=== PATIENT | female | born 1985 | race Caucasian/White ===

== ENCOUNTER 2016-10-08 14:46 | Observation (INO) | payer OTHER ==
[~2016-10-08] VITALS: Ht 170.2 cm; Wt 90.7 kg
[2016-10-08] MEDS ORDERED: IV NORMAL SALINE 1000ML BAG 1,000 ML IV SCH (15:12)
[2016-10-08] MEDS ORDERED: ONDANSETRON PF 4 MG/2 ML VIAL. IV ONE (15:15)
[2016-10-08] MEDS ORDERED: MORPHINE SULFATE 2 MG/ML DISP.SYRIN. IV/SQ PRN (15:15)
--- NOTE | 2016-10-08 15:19 | PHYS DOC ---
Past Medical History Past Medical History: No Pertinent History Past Surgical History: No Surgical History Additional Information: 1 PPD Alcohol Use: None Drug Use: None Adult General Chief Complaint Chief Complaint: MULTIPLE COMPLAINTS HPI HPI Patient is a 31 year old female who presents with abdominal pain epigastric area that radiates from her left upper quadrant or right upper quadrant. She states started at 2:30 the morning. Been constant ever since it started. She is nauseated but has not vomited. She's had several loose stools. She denies any blood in her stools. She denies any recent travel and any past medical history. She is on prednisone for a rash on her neck that she started taking 2 days ago. She states her 2 other children are sick 1 him had nausea vomiting and the other one had some diarrhea Any abdominal pain. 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 Review of Systems Review of Systems Constitutional: Denies fever or chills [] Eyes: Denies change in visual acuity, redness, or eye pain [] HENT: Denies nasal congestion or sore throat [] Respiratory: Denies cough or shortness of breath [] Cardiovascular: No additional information not addressed in HPI [] GI: Positive for abdominal pain, nausea, nonbloody diarrhea. : Denies dysuria or hematuria [] Musculoskeletal: Denies back pain or joint pain [] Integument: Denies rash or skin lesions [] Neurologic: Denies headache, focal weakness or sensory changes [] Endocrine: Denies polyuria or polydipsia [] Current Medications Current Medications Current Medications Medications (Trade) Dose Ordered Sig/[facility] Start Time Stop Time Status Last Admin Dose Admin Iohexol (Omnipaque 240 Mg/ml) 30 ml 1X ONCE 10/08/16 15:30 10/08/16 15:31 DC Iohexol (Omnipaque 300 Mg/ml) 75 ml 1X ONCE 10/08/16 15:30 10/08/16 15:31 DC 10/08/16 16:43 75 ML Morphine Sulfate 2 mg PRN Q15MIN PRN 10/08/16 15:15 10/09/16 15:14 Ondansetron HCl (Zofran) 4 mg 1X ONCE 10/08/16 15:15 10/08/16 15:17 DC 10/08/16 15:34 4 MG Sodium Chloride 1,000 ml @ 1,000 mls/hr Q1H 10/08/16 15:12 10/08/16 16:11 DC 10/08/16 15:35 1,000 MLS/HR Allergies Allergies Allergies Coded Allergies Type Severity Reaction Last Updated Verified No Known Drug Allergies 10/08/16 No Physical Exam Physical Exam Constitutional: Well developed, well nourished, no acute distress, non-toxic appearance. [] HENT: Normocephalic, atraumatic, bilateral external ears normal, oropharynx moist, no oral exudates, nose normal. [] Eyes: PERRLA, EOMI, conjunctiva normal, no discharge. [] Neck: Normal range of motion, no tenderness, supple, no stridor. [] Cardiovascular:Heart rate regular rhythm, no murmur [] Lungs & Thorax: Bilateral breath sounds clear to auscultation [] Abdomen: Bowel sounds normal, soft, mild tender to palpation the left upper quadrant, no rebound or guarding, no masses, no pulsatile masses. [] Skin: Warm, dry, no erythema, no rash. [] Back: No tenderness, no CVA tenderness. [] Extremities: No tenderness, no cyanosis, no clubbing, ROM intact, no edema. [] Neurologic: Alert and oriented X 3, normal motor function, normal sensory function, no focal deficits noted. [] Psychologic: Affect normal, judgement normal, mood normal. [] Current Patient Data Vital Signs Vital Signs Date Time Temp Pulse Resp B/P (MAP) Pulse Ox O2 Delivery O2 Flow Rate FiO2 10/08/16 18:23 64 17 91/60 (70) 98 Room Air 10/08/16 14:59 97.6 97.6 Lab Values Laboratory Tests Test 10/08/16 14:13 10/08/16 15:29 10/08/16 16:00 POC Urine HCG, Qualitative Hcg negative (Negative) White Blood Count 15.3 x10^3/uL (4.0-11.0) H Red Blood Count 4.96 x10^6/uL (3.50-5.40) Hemoglobin 15.5 g/dL (12.0-15.5) Hematocrit 44.7 % (36.0-47.0) Mean Corpuscular Volume 90 fL (79-100) Mean Corpuscular Hemoglobin 31 pg (25-35) Mean Corpuscular Hemoglobin Concent 35 g/dL (31-37) Red Cell Distribution Width 12.5 % (11.5-14.5) Platelet Count 355 x10^3/uL (140-400) Neutrophils (%) (Auto) 71 % (31-73) Lymphocytes (%) (Auto) 21 % (24-48) L Monocytes (%) (Auto) 7 % (0-9) Eosinophils (%) (Auto) 1 % (0-3) Basophils (%) (Auto) 1 % (0-3) Neutrophils # (Auto) 10.9 x10^3uL (1.8-7.7) H Lymphocytes # (Auto) 3.1 x10^3/uL (1.0-4.8) Monocytes # (Auto) 1.0 x10^3/uL (0.0-1.1) Eosinophils # (Auto) 0.2 x10^3/uL (0.0-0.7) Basophils # (Auto) 0.1 x10^3/uL (0.0-0.2) Prothrombin Time 13.0 SEC (11.7-14.0) Prothrombin Time INR 1.0 (0.8-1.1) PTT 33 SEC (24-38) Sodium Level 136 mmol/L (136-145) Potassium Level 4.1 mmol/L (3.5-5.1) Chloride Level 101 mmol/L (98-107) Carbon Dioxide Level 22 mmol/L (21-32) Anion Gap 13 (6-14) Blood Urea Nitrogen 12 mg/dL (7-20) Creatinine 0.9 mg/dL (0.6-1.0) Estimated GFR (Cockcroft-Gault) 72.6 Glucose Level 104 mg/dL (70-99) H Calcium Level 8.8 mg/dL (8.5-10.1) Total Bilirubin 0.2 mg/dL (0.2-1.0) Direct Bilirubin 0.1 mg/dL (0.0-0.2) Aspartate Amino Transferase (AST) 22 U/L (15-37) Alanine Aminotransferase (ALT) 37 U/L (14-59) Alkaline Phosphatase 107 U/L (46-116) Creatine Kinase 58 U/L (26-192) Creatine Kinase MB (Mass) 3.2 ng/mL (0.0-3.6) Creatine Kinase MB Relative Index 5.5 % (0-4) H Troponin I Quantitative < 0.017 ng/mL (0.000-0.055) Total Protein 8.1 g/dL (6.4-8.2) Albumin 4.2 g/dL (3.4-5.0) Lipase 87 U/L (73-393) Urine Collection Type Unknown Urine Color Henna Urine Clarity Clear Urine pH 6.0 Urine Specific [place] >=1.030 Urine Protein 100 mg/dL (NEG-TRACE) Urine Glucose (UA) Negative mg/dL (NEG) Urine Ketones (Stick) Trace mg/dL (NEG) Urine Blood Large (NEG) Urine Nitrite Negative (NEG) Urine Bilirubin Small (NEG) Urine Urobilinogen Dipstick 0.2 mg/dL (0.2 mg/dL) Urine Leukocyte Esterase Trace (NEG) Urine RBC >40 /HPF (0-2) Urine WBC 1-4 /HPF (0-4) Urine Squamous Epithelial Cells Mod /LPF Urine Bacteria 0 /HPF (0-FEW) Urine Cellular Casts Occ /HPF Urine Hyaline Casts Moderate /HPF Urine Mucus Marked /LPF Urine Yeast Present /HPF Stool Occult Blood Negative (NEG) Laboratory Tests 10/08/16 15:29 Laboratory Tests 10/08/16 15:29 EKG EKG Sinus rhythm at [address] elevations or T-wave inversions, normal axis, QTC 420 ms, as interpreted by me. Radiology/Procedures Radiology/Procedures [facility] [address] [place] [address] IMAGING REPORT Signed PATIENT: ANGIE MARIE ACCOUNT: [id number] : 1985 LOCATION: ER AGE: 31 SEX: F EXAM STATUS: REG ER ORD. PHYSICIAN: ROSE PICHARDO MD REASON: diarrhea, abdominal pain PROCEDURE: CT ABD PELV W/ORAL&IV CONTRAST INDICATION: Abdomen pain COMPARISON: None. TECHNIQUE: Axial CT images were obtained through the abdomen and pelvis with intravenous contrast. Coronal reformations were processed. FINDINGS: Abdomen: Chest Base: Partially imaged without gross abnormality. Vessels: No abdominal aortic aneurysm. Liver/Biliary: No intrahepatic biliary duct dilation. Pancreas: No peripancreatic edema. Spleen: Normal. Kidneys/Adrenal: No hydronephrosis. GI: Appendix does not appear grossly inflamed. There are some dilated loops of small bowel identified within the abdomen with some of them measuring greater than 3 cm in diameter. Mild mesenteric edema. Pelvis: Bladder: Largely decompressed IMPRESSION: 1. There are a few mild dilated loops of small bowel identified with some subtle suspected mesenteric edema. Could be seen with causes such as partial small bowel obstruction or ileus. Delayed images could be obtained to assess whether the contrast passes distal to these dilated small bowel loops and into the colon to ensure that there is not a higher grade complete obstructive process. PQRS Compliance Statement: One or more of the following individualized dose reduction techniques were utilized for this examination: 1. Automated exposure control 2. Adjustment of the mA and/or kV according to patient size 3. Use of iterative reconstruction technique DICTATED and SIGNED BY: VALERIE DUNCAN MD DATE: 10/08/16 2457 CC: ROSE PICHARDO MD; UNKNOWN PCP NAME ~ Impressions: Partial small bowel obstruction Diarrhea Abdominal pain Course & Med Decision Making Course & Med Decision Making Pertinent Labs and Imaging studies reviewed. (See chart for details) CT scan is concerning for partial small bowel obstruction. Spoke with Dr. Coulter was the patient admitted in observation status. Patient's agreeable to being admitted. She is in stable condition this time. Interim orders have been written. Dragon Disclaimer Dragon Disclaimer This electronic medical record was generated, in whole or in part, using a voice recognition dictation system. Departure Departure Impression: Primary Impression: Partial small bowel obstruction Disposition: ADMITTED INPATIENT Admitting Physician: Other Condition: STABLE ROSE PICHARDO MD Oct 08, 2016 15:19
--- NOTE | 2016-10-08 15:25 | EKG ---
[facility] [address] [place] [address] Test Date: 2016-10-08 Test Time: 15:21:04 Pat Name: ANGIE MARIE Department: Room: Gender: F Health Advisor: : 1985 Requested By: ROSE PICHARDO Order Number: [id number] Reading MD: Measurements Intervals [place] Rate: 75 P: 43 CT: 180 QRS: 25 QRSD: 86 T: 31 QT: 374 QTc: 420 Interpretive Statements SINUS RHYTHM RI6.01 Unconfirmed report No previous ECG available for comparison
[2016-10-08] MEDS ORDERED: IOHEXOL 240 MG/ML 50ML VIAL. PO ONE (15:30)
[2016-10-08] MEDS ORDERED: IOHEXOL 300 MG/ML 75 ML VIAL IV ONE (15:30)
[2016-10-08 15:49] LABS: BASO # 0.1 x10^3/uL (0.0-0.2); BASO % 1 % (0-3); EOS % 1 % (0-3); HEMATOCRIT 44.7 % (36.0-47.0); HEMOGLOBIN 15.5 g/dL (12.0-15.5); LYMPH # 3.1 x10^3/uL (1.0-4.8); LYMPH % 21 % (24-48); MEAN CORPUSCULAR HEMOGLOBIN 31 pg (25-35); MEAN CORPUSCULAR HGB CONC 35 g/dL (31-37); MEAN CORPUSCULAR VOLUME 90 fL (79-100); MONO % 7 % (0-9); NEUT % 71 % (31-73); PLATELET COUNT 355 x10^3/uL (140-400); RED BLOOD COUNT 4.96 x10^6/uL (3.50-5.40); RED CELL DISTRIBUTION WIDTH 12.5 % (11.5-14.5); WHITE BLOOD COUNT 15.3 x10^3/uL (4.0-11.0)
[2016-10-08 16:03] LABS: CALCIUM 8.8 mg/dL (8.5-10.1); CREATININE 0.9 mg/dL (0.6-1.0); GFR 72.6; POTASSIUM 4.1 mmol/L (3.5-5.1)
[2016-10-08 16:09] LABS: ALBUMIN 4.2 g/dL (3.4-5.0); DIRECT BILIRUBIN 0.1 mg/dL (0.0-0.2); TOTAL BILIRUBIN 0.2 mg/dL (0.2-1.0); TOTAL PROTEIN 8.1 g/dL (6.4-8.2)
[2016-10-08 16:15] LABS: BILIRUBIN,URINE SMALL (NEG); GLUCOSE,URINE NEGATIVE (NEG); NITRITE,URINE NEGATIVE (NEG); PROTEIN,URINE 100 mg/dL (NEG-TRACE); UROBILINOGEN,URINE 0.2 mg/dL (0.2 mg/dL)
[2016-10-08 16:17] LABS: CKMB MASS 3.2 ng/mL (0.0-3.6)
[2016-10-08 16:29] LABS: BACTERIA,URINE 0 /HPF (0-FEW); RBC,URINE >40 /HPF (0-2); SQUAMOUS EPITHELIAL CELL,UR MOD /LPF; YEAST,URINE PRESENT /HPF
[2016-10-08 16:32] LABS: NEG OBC FOB NEG; POS OBC FOB POS
--- NOTE | 2016-10-08 17:06 | RAD ---
INDICATION: Abdomen pain COMPARISON: None. TECHNIQUE: Axial CT images were obtained through the abdomen and pelvis with intravenous contrast. Coronal reformations were processed. FINDINGS: Abdomen: Chest Base: Partially imaged without gross abnormality. Vessels: No abdominal aortic aneurysm. Liver/Biliary: No intrahepatic biliary duct dilation. Pancreas: No peripancreatic edema. Spleen: Normal. Kidneys/Adrenal: No hydronephrosis. GI: Appendix does not appear grossly inflamed. There are some dilated loops of small bowel identified within the abdomen with some of them measuring greater than 3 cm in diameter. Mild mesenteric edema. Pelvis: Bladder: Largely decompressed IMPRESSION: 1. There are a few mild dilated loops of small bowel identified with some subtle suspected mesenteric edema. Could be seen with causes such as partial small bowel obstruction or ileus. Delayed images could be obtained to assess whether the contrast passes distal to these dilated small bowel loops and into the colon to ensure that there is not a higher grade complete obstructive process. PQRS Compliance Statement: One or more of the following individualized dose reduction techniques were utilized for this examination: 1. Automated exposure control 2. Adjustment of the mA and/or kV according to patient size 3. Use of iterative reconstruction technique
[2016-10-08] MEDS ORDERED: IV DEXTROSE 5 %-0.45 % NACL 1,000 ML IV ONE (19:15)
[2016-10-08] MEDS ORDERED: ONDANSETRON PF 4 MG/2 ML VIAL. IV PRN (19:15)
[2016-10-08] MEDS ORDERED: MORPHINE SULFATE 2 MG/ML DISP.SYRIN. IV PRN (19:15)
[2016-10-08] MEDS ORDERED: SERT100T PO (21:49)
[2016-10-08] MEDS ORDERED: IBUPROFEN 400 MG TABLET. PO ONE (22:00)
[2016-10-08 23:00] VITALS: BP 137/61
[2016-10-08] MEDS ORDERED: SERTRALINE 50 MG TABLET. PO SCH (23:00)
[2016-10-09] MEDS ORDERED: MAGNESIUM SULFATE 2GM 50 ML IV ONE
--- NOTE | 2016-10-09 00:41 | ACF ---
Admission Forms Criteria INTESTINAL OBSTRUCTION Clinical Indications for Admission to Inpatient Care (Place 'X' for any and all applicable criteria): Admission is indicated for ANY ONE of the following (1)(2)(3)(4)(5): [X]I. Partial bowel obstruction [ ]II. Complete bowel obstruction Extended stay beyond goal length of stay may be needed for(1)(4)(12(: [ ]a) Identified etiology (eg, hernia, volvulus, cancer with obstruction) requiring intervention [ ]b) Gallstone ileus [ ]c) Surgical intervention [ ]d) Acute comorbid illness (eg, electrolyte imbalance, hypovolemia, renal failure) The original [employer] content created by [employer] has been revised. The portions of the content which have been revised are identified through the use of italic text or in bold, and [facility] [employer] has neither reviewed nor approved the modified material. All other unmodified content is copyright [employer]. Please see references footnoted in the original [employer] edition 2016 Admission Criteria Met?: Yes RADHA ROBBINS Oct 09, 2016 00:41
[2016-10-09] MEDS ORDERED: LOPERAMIDE 2 MG CAPSULE PO PRN (00:45)
--- NOTE | 2016-10-09 02:00 | HP ---
ADMIT DATE: 10/08/2016 CHIEF COMPLAINT: Diarrhea. HISTORY OF PRESENT ILLNESS: The patient is a 31-year-old woman with past medical history of celiac disease, who presents with diarrhea starting this morning. She relates that she has had watery bowel movements, upwards of 30 today. She denies any significant pain, but does have some dull achiness in her abdominal discomfort. She has not noticed any blood in her bowel movements. Denies any nausea or vomiting. Denies any fevers or chills. Her 2 sons had a "stomach bug" last weekend. She denies any chest pain or other symptoms. In the Emergency Room, a CT of the abdomen was obtained, which was concerning for potential small-bowel obstruction and she was therefore admitted. PAST MEDICAL HISTORY: Celiac disease. FAMILY HISTORY: No known celiac. SOCIAL HISTORY: She is , living with her . Smokes about a pack a day. Denies regular alcohol use, no drugs. ALLERGIES: No known drug allergies. HOME MEDICATIONS: Reconciled with MAR. REVIEW OF SYSTEMS: Positive as per HPI. Rest of organ system review is negative. PHYSICAL EXAMINATION: VITAL SIGNS: From today show blood pressure 127/70, heart rate over 80, respiratory rate at 17. She is afebrile. GENERAL: This is an obese, 31-year-old woman, alert and oriented, in no acute distress. HEENT: Shows no scleral icterus. NECK: Supple. LUNGS: Clear to auscultation bilaterally. HEART: Regular rate and rhythm. ABDOMEN: Has positive bowel sounds, soft, minimal tenderness to palpation throughout. EXTREMITIES: Show no edema. SKIN: Warm, soft and dry without any rash. LABORATORY DATA: CBC with a WBC of 15.3, hemoglobin 15.5, platelets of 355, neutrophils at 71. Chemistries with a BUN and creatinine of 12 and 0.9, normal electrolytes, normal LFTs, normal troponins. Urine is negative for infectious symptoms. Stool occult blood is negative. IMAGING STUDIES: CT of the abdomen with dilated loops of bowel identified some also measuring greater than 3 cm in diameter. Mild mesenteric edema. ASSESSMENT AND PLAN: The patient is a 31-year-old woman with enteritis and recent family symptoms of same type. Electrolytes actually are very well considering. We will monitor closely. She is receiving IV fluids for rehydration. She may have Imodium for a diarrheal symptoms. Hopefully, this will tomasa fairly soon as typical viral gastroenteritis should last 24-48 hours. Labs will be monitored. Electrolytes replete as needed. She will be continued on her home medication of sertraline. RUPAL CALDERON MD DR: MYLES/nts JOB#: [id number] / [id number] JADEN
[2016-10-09 03:00] VITALS: BP 103/50
[2016-10-09 05:39] LABS: BASO % 0 % (0-3); EOS % 4 % (0-3); HEMATOCRIT 45.4 % (36.0-47.0); HEMOGLOBIN 15.5 g/dL (12.0-15.5); LYMPH # 3.6 x10^3/uL (1.0-4.8); LYMPH % 33 % (24-48); MEAN CORPUSCULAR HEMOGLOBIN 31 pg (25-35); MEAN CORPUSCULAR HGB CONC 34 g/dL (31-37); MEAN CORPUSCULAR VOLUME 90 fL (79-100); MONO % 8 % (0-9); NEUT % 55 % (31-73); PLATELET COUNT 375 x10^3/uL (140-400); RED BLOOD COUNT 5.03 x10^6/uL (3.50-5.40); RED CELL DISTRIBUTION WIDTH 12.4 % (11.5-14.5); WHITE BLOOD COUNT 10.9 x10^3/uL (4.0-11.0)
[2016-10-09 05:45] LABS: CALCIUM 7.7 mg/dL (8.5-10.1); GFR 64.3; POTASSIUM 3.9 mmol/L (3.5-5.1)
[2016-10-09 07:50] VITALS: BP 95/58
[2016-10-09 10:59] VITALS: BP 98/60
--- NOTE | 2016-10-09 13:54 | PDOC3 ---
Discharge Summary Visit Information Date of Admission: Oct 08, 2016 Date of Discharge: Oct 09, 2016 Admitting Diagnosis: abd pain, diarrhea Final Diagnosis celiac disease acute abd pain viral enteritis obesity BMI 31 depression, stable Problems Medical Problems: (1) Partial small bowel obstruction Status: Acute Brief Hospital Course Allergies Allergies Coded Allergies Type Severity Reaction Last Updated Verified No Known Drug Allergies 10/08/16 No Vital Signs Vital Signs Date Time Temp Pulse Resp B/P (MAP) Pulse Ox O2 Delivery O2 Flow Rate FiO2 10/09/16 10:59 97.5 66 20 98/60 (73) 98 Room Air 97.5 Lab Results Laboratory Tests Test 10/08/16 14:13 10/08/16 15:29 10/08/16 16:00 10/09/16 05:00 Bedside Urine HCG, Qualitative Hcg negative (Negative) White Blood Count 15.3 x10^3/uL (4.0-11.0) 10.9 x10^3/uL (4.0-11.0) Red Blood Count 4.96 x10^6/uL (3.50-5.40) 5.03 x10^6/uL (3.50-5.40) Hemoglobin 15.5 g/dL (12.0-15.5) 15.5 g/dL (12.0-15.5) Hematocrit 44.7 % (36.0-47.0) 45.4 % (36.0-47.0) Mean Corpuscular Volume 90 fL (79-100) 90 fL (79-100) Mean Corpuscular Hemoglobin 31 pg (25-35) 31 pg (25-35) Mean Corpuscular Hemoglobin Concent 35 g/dL (31-37) 34 g/dL (31-37) Red Cell Distribution Width 12.5 % (11.5-14.5) 12.4 % (11.5-14.5) Platelet Count 355 x10^3/uL (140-400) 375 x10^3/uL (140-400) Neutrophils (%) (Auto) 71 % (31-73) 55 % (31-73) Lymphocytes (%) (Auto) 21 % (24-48) 33 % (24-48) Monocytes (%) (Auto) 7 % (0-9) 8 % (0-9) Eosinophils (%) (Auto) 1 % (0-3) 4 % (0-3) Basophils (%) (Auto) 1 % (0-3) 0 % (0-3) Neutrophils # (Auto) 10.9 x10^3uL (1.8-7.7) 5.9 x10^3uL (1.8-7.7) Lymphocytes # (Auto) 3.1 x10^3/uL (1.0-4.8) 3.6 x10^3/uL (1.0-4.8) Monocytes # (Auto) 1.0 x10^3/uL (0.0-1.1) 0.9 x10^3/uL (0.0-1.1) Eosinophils # (Auto) 0.2 x10^3/uL (0.0-0.7) 0.5 x10^3/uL (0.0-0.7) Basophils # (Auto) 0.1 x10^3/uL (0.0-0.2) 0.0 x10^3/uL (0.0-0.2) Prothrombin Time 13.0 SEC (11.7-14.0) Prothromb Time International Ratio 1.0 (0.8-1.1) Activated Partial Thromboplast Time 33 SEC (24-38) Sodium Level 136 mmol/L (136-145) 141 mmol/L (136-145) Potassium Level 4.1 mmol/L (3.5-5.1) 3.9 mmol/L (3.5-5.1) Chloride Level 101 mmol/L (98-107) 107 mmol/L (98-107) Carbon Dioxide Level 22 mmol/L (21-32) 25 mmol/L (21-32) Anion Gap 13 (6-14) 9 (6-14) Blood Urea Nitrogen 12 mg/dL (7-20) 9 mg/dL (7-20) Creatinine 0.9 mg/dL (0.6-1.0) 1.0 mg/dL (0.6-1.0) Estimated GFR (Cockcroft-Gault) 72.6 64.3 Glucose Level 104 mg/dL (70-99) 93 mg/dL (70-99) Calcium Level 8.8 mg/dL (8.5-10.1) 7.7 mg/dL (8.5-10.1) Total Bilirubin 0.2 mg/dL (0.2-1.0) Direct Bilirubin 0.1 mg/dL (0.0-0.2) Aspartate Amino Transf (AST/SGOT) 22 U/L (15-37) Alanine Aminotransferase (ALT/SGPT) 37 U/L (14-59) Alkaline Phosphatase 107 U/L (46-116) Creatine Kinase 58 U/L (26-192) Creatine Kinase MB (Mass) 3.2 ng/mL (0.0-3.6) Creatine Kinase MB Relative Index 5.5 % (0-4) Troponin I Quantitative < 0.017 ng/mL (0.000-0.055) Total Protein 8.1 g/dL (6.4-8.2) Albumin 4.2 g/dL (3.4-5.0) Lipase 87 U/L (73-393) Urine Collection Type Unknown Urine Color Henna Urine Clarity Clear Urine pH 6.0 Urine Specific [place] >=1.030 Urine Protein 100 mg/dL (NEG-TRACE) Urine Glucose (UA) Negative mg/dL (NEG) Urine Ketones (Stick) Trace mg/dL (NEG) Urine Blood Large (NEG) Urine Nitrite Negative (NEG) Urine Bilirubin Small (NEG) Urine Urobilinogen Dipstick 0.2 mg/dL (0.2 mg/dL) Urine Leukocyte Esterase Trace (NEG) Urine RBC >40 /HPF (0-2) Urine WBC 1-4 /HPF (0-4) Urine Squamous Epithelial Cells Mod /LPF Urine Bacteria 0 /HPF (0-FEW) Urine Cellular Casts Occ /HPF Urine Hyaline Casts Moderate /HPF Urine Mucus Marked /LPF Urine Yeast Present /HPF Stool Occult Blood Negative (NEG) Clostridium difficile Toxin (PCR) Negative (Negative) Laboratory Tests Test 10/08/16 14:13 10/08/16 15:29 10/08/16 16:00 10/09/16 05:00 Bedside Urine HCG, Qualitative Hcg negative (Negative) White Blood Count 15.3 x10^3/uL (4.0-11.0) 10.9 x10^3/uL (4.0-11.0) Red Blood Count 4.96 x10^6/uL (3.50-5.40) 5.03 x10^6/uL (3.50-5.40) Hemoglobin 15.5 g/dL (12.0-15.5) 15.5 g/dL (12.0-15.5) Hematocrit 44.7 % (36.0-47.0) 45.4 % (36.0-47.0) Mean Corpuscular Volume 90 fL (79-100) 90 fL (79-100) Mean Corpuscular Hemoglobin 31 pg (25-35) 31 pg (25-35) Mean Corpuscular Hemoglobin Concent 35 g/dL (31-37) 34 g/dL (31-37) Red Cell Distribution Width 12.5 % (11.5-14.5) 12.4 % (11.5-14.5) Platelet Count 355 x10^3/uL (140-400) 375 x10^3/uL (140-400) Neutrophils (%) (Auto) 71 % (31-73) 55 % (31-73) Lymphocytes (%) (Auto) 21 % (24-48) 33 % (24-48) Monocytes (%) (Auto) 7 % (0-9) 8 % (0-9) Eosinophils (%) (Auto) 1 % (0-3) 4 % (0-3) Basophils (%) (Auto) 1 % (0-3) 0 % (0-3) Neutrophils # (Auto) 10.9 x10^3uL (1.8-7.7) 5.9 x10^3uL (1.8-7.7) Lymphocytes # (Auto) 3.1 x10^3/uL (1.0-4.8) 3.6 x10^3/uL (1.0-4.8) Monocytes # (Auto) 1.0 x10^3/uL (0.0-1.1) 0.9 x10^3/uL (0.0-1.1) Eosinophils # (Auto) 0.2 x10^3/uL (0.0-0.7) 0.5 x10^3/uL (0.0-0.7) Basophils # (Auto) 0.1 x10^3/uL (0.0-0.2) 0.0 x10^3/uL (0.0-0.2) Prothrombin Time 13.0 SEC (11.7-14.0) Prothromb Time International Ratio 1.0 (0.8-1.1) Activated Partial Thromboplast Time 33 SEC (24-38) Sodium Level 136 mmol/L (136-145) 141 mmol/L (136-145) Potassium Level 4.1 mmol/L (3.5-5.1) 3.9 mmol/L (3.5-5.1) Chloride Level 101 mmol/L (98-107) 107 mmol/L (98-107) Carbon Dioxide Level 22 mmol/L (21-32) 25 mmol/L (21-32) Anion Gap 13 (6-14) 9 (6-14) Blood Urea Nitrogen 12 mg/dL (7-20) 9 mg/dL (7-20) Creatinine 0.9 mg/dL (0.6-1.0) 1.0 mg/dL (0.6-1.0) Estimated GFR (Cockcroft-Gault) 72.6 64.3 Glucose Level 104 mg/dL (70-99) 93 mg/dL (70-99) Calcium Level 8.8 mg/dL (8.5-10.1) 7.7 mg/dL (8.5-10.1) Total Bilirubin 0.2 mg/dL (0.2-1.0) Direct Bilirubin 0.1 mg/dL (0.0-0.2) Aspartate Amino Transf (AST/SGOT) 22 U/L (15-37) Alanine Aminotransferase (ALT/SGPT) 37 U/L (14-59) Alkaline Phosphatase 107 U/L (46-116) Creatine Kinase 58 U/L (26-192) Creatine Kinase MB (Mass) 3.2 ng/mL (0.0-3.6) Creatine Kinase MB Relative Index 5.5 % (0-4) Troponin I Quantitative < 0.017 ng/mL (0.000-0.055) Total Protein 8.1 g/dL (6.4-8.2) Albumin 4.2 g/dL (3.4-5.0) Lipase 87 U/L (73-393) Urine Collection Type Unknown Urine Color Henna Urine Clarity Clear Urine pH 6.0 Urine Specific [place] >=1.030 Urine Protein 100 mg/dL (NEG-TRACE) Urine Glucose (UA) Negative mg/dL (NEG) Urine Ketones (Stick) Trace mg/dL (NEG) Urine Blood Large (NEG) Urine Nitrite Negative (NEG) Urine Bilirubin Small (NEG) Urine Urobilinogen Dipstick 0.2 mg/dL (0.2 mg/dL) Urine Leukocyte Esterase Trace (NEG) Urine RBC >40 /HPF (0-2) Urine WBC 1-4 /HPF (0-4) Urine Squamous Epithelial Cells Mod /LPF Urine Bacteria 0 /HPF (0-FEW) Urine Cellular Casts Occ /HPF Urine Hyaline Casts Moderate /HPF Urine Mucus Marked /LPF Urine Yeast Present /HPF Stool Occult Blood Negative (NEG) Clostridium difficile Toxin (PCR) Negative (Negative) Brief Hospital Course Ms. Rodrigues is a 31 old woman with past medical history of celiac disease, admitted with diarrhea maybe X30 self limited, improved overnight in hospital req. reg diet, wanted to DC home, felt well recent sick contacts for diarrhea noted that were also very limited courses Discharge Information Condition at Discharge: Improved Follow Up: Weeks Disposition/Orders: D/C to Home Scheduled Sertraline Hcl (Zoloft), 1 TAB PO QHS, (Reported) Patient Instructions Patient Instructions < 30 min f/u [facility] CHAD EUBANKS MD Oct 09, 2016 13:54
== END 2016-10-09 16:21 | disposition home or self-care (01) ==
LOC: ER 14:46 → INTOOBSV 18:00 → 5 NORTH 18:00
PROVIDERS: ADMIT Internal Medicine Hematology & Oncology; ATTEND Internal Medicine Hematology & Oncology
DX: K90.0 Celiac disease (principal); K52.9 Noninfective gastroenteritis and colitis, unspecified; A08.4 Viral intestinal infection, unspecified; E66.9 Obesity, unspecified; Z68.31 Body mass index [BMI] 31.0-31.9, adult; F32.9 Major depressive disorder, single episode, unspecified; F17.210 Nicotine dependence, cigarettes, uncomplicated
CPT/HCPCS: 36415; 74177; 80048; 80076; 81001; 81025; 82274; 82553; 83690; 83735; 84484; 85027; 85610; 85730; 87086; 87205; 87324; 93005; 96361; 96365; 96366; 96375; 99285; G0378; J2405; J7030; J7060; Q9967; G0379